=== PATIENT | male | born 1950 | race Caucasian/White ===

== ENCOUNTER → 2016-05-11 | Outpatient (REF) | payer BC, OTHER ==
[2016-05-11 16:01] LABS: ALBUMIN/GLOBULIN RATIO 1.38 (1.00-1.93); ALKALINE PHOSPHATASE 84 U/L (45-117); ALT/SGPT 36 U/L (12-78); ANION GAP 5 MEQ/L (8-16); AST/SGOT 28 U/L (15-37); BILIRUBIN,TOTAL 0.5 MG/DL (0.2-1.0); BLOOD UREA NITROGEN 17 MG/DL (7-18); CALCIUM LEVEL 8.4 MG/DL (8.8-10.2); CARBON DIOXIDE LEVEL 31 MEQ/L (21-32); CHLORIDE LEVEL 106 MEQ/L (98-107); CHOLESTEROL LEVEL 208 MG/DL (<200); CREATININE FOR GFR 1.04 MG/DL (0.70-1.30); GLOMERULAR FILTRATION RATE > 60.0 (>49); GLUCOSE, FASTING 97 MG/DL (80-110); SODIUM LEVEL 142 MEQ/L (136-145); TOTAL PROTEIN 6.9 GM/DL (6.4-8.2); TRIGLYCERIDES LEVEL 171 MG/DL (<150)
[2016-05-11 16:07] LABS: VITAMIN B12 LEVEL 631 PG/ML (247-911)
== END ==
LOC: M LABDRAW1 15:21
PROVIDERS: ATTEND Family Medicine
DX: I10 Essential (primary) hypertension (principal); E78.5 Hyperlipidemia, unspecified; Z12.5 Encounter for screening for malignant neoplasm of prostate; E53.8 Deficiency of other specified B group vitamins
CPT/HCPCS: 36415; 80053; 80061; 82607; G0103

== ENCOUNTER → 2016-06-21 | Outpatient (REF) | payer OTHER | LOC: M SFHCADAM 11:47 | PROVIDERS: ATTEND Family Medicine | DX: Z53.8 Procedure and treatment not carried out for other reasons (principal); I11.9 Hypertensive heart disease without heart failure ==

== ENCOUNTER → 2016-11-08 | Outpatient (REF) | payer MEDICARE, OTHER | LOC: M LABDRAW1 15:47 | PROVIDERS: ATTEND Family Medicine | DX: R97.20 Elevated prostate specific antigen [PSA] (principal) ==

== ENCOUNTER → 2016-11-18 | Outpatient (REF) | payer MEDICARE, BC, OTHER ==
[2016-11-18 17:35] LABS: ALBUMIN 4.1 GM/DL (3.2-5.2); ALBUMIN/GLOBULIN RATIO 1.37 (1.00-1.93); ALKALINE PHOSPHATASE 69 U/L (45-117); ALT/SGPT 123 U/L (12-78); ANION GAP 4 MEQ/L (8-16); AST/SGOT 104 U/L (15-37); BILIRUBIN,TOTAL 0.8 MG/DL (0.2-1.0); BLOOD UREA NITROGEN 16 MG/DL (7-18); CALCIUM LEVEL 8.9 MG/DL (8.8-10.2); CARBON DIOXIDE LEVEL 32 MEQ/L (21-32); CHLORIDE LEVEL 103 MEQ/L (98-107); CREATININE FOR GFR 1.14 MG/DL (0.70-1.30); FREE T4 0.84 NG/DL (0.76-1.46); GLOMERULAR FILTRATION RATE > 60.0 (>49); GLUCOSE, FASTING 97 MG/DL (80-110); POTASSIUM SERUM 4.2 MEQ/L (3.5-5.1); SODIUM LEVEL 139 MEQ/L (136-145); TOTAL PROTEIN 7.1 GM/DL (6.4-8.2)
[2016-11-18 17:36] LABS: VITAMIN B12 LEVEL 1153 PG/ML (247-911)
[2016-11-18 17:39] LABS: MEAN CORPUSCULAR HEMOGLOBIN 36.6 pg (27.0-33.0); MEAN CORPUSCULAR HGB CONC 35.7 g/dl (32.0-36.5); MEAN CORPUSCULAR VOLUME 102.6 fl (80.0-96.0); RED CELL DISTRIBUTION WIDTH 11.9 % (11.5-14.5)
== END ==
LOC: M SFHCPLAZ 10:51
PROVIDERS: ATTEND Family Medicine
DX: R06.09 Other forms of dyspnea (principal); E53.8 Deficiency of other specified B group vitamins

== ENCOUNTER → 2016-11-25 | Outpatient (CLI) | payer MEDICARE, BC, OTHER ==
--- NOTE | 2016-11-25 11:12 | REP ---
Clinical: Dyspnea . Comparison: 04/16/2009 . Technique: PA and lateral. Findings: The mediastinum and cardiac silhouette are normal. The lung adams are clear and without acute consolidation, effusion, or pneumothorax. The skeletal structures are intact and normal. Impression: 1. No acute cardiopulmonary process. Signed by Darío Rojo MD 11/25/2016 11:03 A
--- NOTE | 2016-11-25 18:13 | ECHO ---
DATE OF PROCEDURE: 11/25/2016 REFERRING PHYSICIAN: Luis Felipe Quigley MD INDICATION: Dyspnea. HEIGHT: 71 inches WEIGHT: 227 pounds PATIENT LOCATION: Outpatient. DIMENSIONS: IVS: 1.5 LV: 4.7 LVPW: 1.3 LA: 4.9 Aorta: 3.7 FINDINGS: The study is of fair technical quality. Left ventricle is of normal size. Moderate left ventricular hypertrophy is noted. There appears to be wall motion abnormality involving distal septum and apex that appear hypokinetic, but the visualization was rather limited and I am not certain about these findings. Overall left ventricle ejection fraction is preserved and I estimate LV EF around 60-65%. Right ventricle is normal. Left atrium is moderately enlarged. Right atrium is probably normal. There is no pericardial effusion. Aortic valve appears mildly sclerotic, but it has three cusps and normal mobility. Mitral, tricuspid and pulmonic valves appear normal. Inferior vena cava was not seen. Aortic root is normal. Aortic arch and abdominal aorta were not visualized. Doppler interrogation of aortic valve reveals no significant stenosis or insufficiency. There is mild mitral insufficiency and mild tricuspid insufficiency. Unfortunately, quality of TR jet was not sufficient to adequately estimate pulmonary artery pressure. There is mild pulmonic insufficiency. Mitral inflow pattern and tissue Doppler imaging of mitral annulus reveal grade 2 diastolic dysfunction with pseudo normal filling pattern on mitral inflow. CONCLUSIONS: 1. The study is of fair technical quality. 2. Normal left ventricle (LV) size with moderate left ventricular hypertrophy and overall preserved LV systolic function. Suspicion for wall motion abnormality involving distal septum and apex. 3. No significant valvular disease. 4. Unable to estimate central venous pressure and pulmonary artery pressure. COMMENT: Subacute bacterial endocarditis (SBE) prophylaxis is not recommended. Study raises suspicion for ischemic heart disease. There is evidence for hypertensive heart disease. [facility]
== END ==
LOC: M CARPUL 09:30
PROVIDERS: ATTEND Family Medicine
DX: R06.09 Other forms of dyspnea (principal); I10 Essential (primary) hypertension; R93.1 Abnormal findings on diagnostic imaging of heart and coronary circulation

== ENCOUNTER → 2016-12-21 | Outpatient (REF) | payer MEDICARE, BC, OTHER ==
[2016-12-21 20:58] LABS: ALBUMIN/GLOBULIN RATIO 1.14 (1.00-1.93); ALKALINE PHOSPHATASE 85 U/L (45-117); ALT/SGPT 134 U/L (12-78); AST/SGOT 90 U/L (15-37); BILIRUBIN,DIRECT 0.3 MG/DL (0.0-0.2); BILIRUBIN,TOTAL 0.7 MG/DL (0.2-1.0); FERRITIN 428 NG/ML (26-388); TOTAL PROTEIN 7.5 GM/DL (6.4-8.2)
[2016-12-23 11:05] LABS: HEPATITIS B SURFACE ANTIBODY NEGATIVE (POSITIVE)
[2016-12-23 11:31] LABS: HEP C VIRUS AB SCREEN MEDICARE 0.1 INDEX (<0.8)
[2016-12-24 00:07] LABS: ALPHA 1 ANTITRYPSIN 151 mg/dL (90-200)
== END ==
LOC: M SFHCADAM 15:37
PROVIDERS: ATTEND Family Medicine
DX: Z00.00 Encounter for general adult medical examination without abnormal findings (principal); R79.89 Other specified abnormal findings of blood chemistry; R93.1 Abnormal findings on diagnostic imaging of heart and coronary circulation; R06.9 Unspecified abnormalities of breathing; D53.9 Nutritional anemia, unspecified; Z23 Encounter for immunization
CPT/HCPCS: 80076; 82103; 82728; 86038; 86255; 86705; 86706; 86709; 87340; 90471; 90662; 90670; G0008; G0402; G0472

== ENCOUNTER → 2016-12-26 | Outpatient (CLI) | payer MEDICARE, BC, OTHER ==
--- NOTE | 2016-12-26 10:33 | REP ---
LIVER ULTRASOUND: HISTORY: Abnormal liver function tests. Calcifications are present in the gallbladder consistent with cholelithiasis. The gallbladder wall measures 2.1 mm. The common bile duct measures 4.3 mm. The liver is normal in echogenicity. The pancreas is not seen due to overlying bowel gas. The right kidney measures 6.1 cm in transverse by 4.8 cm in AP by 10.5 cm in cephalocaudal dimensions. There is no hydronephrosis or mass. IMPRESSION: Cholelithiasis. Signed by Jules Bajwa MD 12/26/2016 10:45 A
== END ==
LOC: M RAD 07:39
PROVIDERS: ATTEND Family Medicine
DX: K80.20 Calculus of gallbladder without cholecystitis without obstruction (principal)

== ENCOUNTER → 2017-01-20 | Outpatient (REF) | payer MEDICARE, OTHER ==
[2017-01-20 13:49] LABS: ANION GAP 9 MEQ/L (8-16); BLOOD UREA NITROGEN 14 MG/DL (7-18); CALCIUM LEVEL 9.2 MG/DL (8.8-10.2); CARBON DIOXIDE LEVEL 32 MEQ/L (21-32); CHLORIDE LEVEL 96 MEQ/L (98-107); CREATININE FOR GFR 1.08 MG/DL (0.70-1.30); GLOMERULAR FILTRATION RATE > 60.0 (>49); GLUCOSE, FASTING 136 MG/DL (80-110); SODIUM LEVEL 137 MEQ/L (136-145)
== END ==
LOC: M SFHCADAM 09:10
PROVIDERS: ATTEND Family Medicine
DX: R06.09 Other forms of dyspnea (principal); I10 Essential (primary) hypertension

== ENCOUNTER → 2017-01-24 | Outpatient (CLI) | payer MEDICARE, BC, OTHER ==
[~2017-01-24] MED LIST: ISOVUE-370 76% 100ML VIAL (Q9967) As Ordered ONE
--- NOTE | 2017-01-24 19:00 | REP ---
Clinical: Dyspnea on exertion. Technique: Axial contrast enhanced images from the thoracic inlet to the upper abdomen using 100 ml Isovue 370 intravenous contrast material with multiplanar re-formations. Findings: Satisfactory enhancement of the pulmonary vasculature is achieved and no filling defects are identified to suggest pulmonary embolus. Further evaluation of the mediastinum demonstrates normal thoracic aorta, heart and pericardium. The bilateral lung adams are well aerated and clear without consolidation pleural effusion or pneumothorax. Tracheobronchial tree is patent. No nodule or mass lesion is identified. No adenopathy noted. Surrounding musculoskeletal structures intact. Moderate hiatal hernia identified. Limited evaluation of the upper abdomen demonstrates fatty infiltration to the liver and evidence for cholelithiasis. Normal bilateral adrenal glands noted. Impression: 1. No evidence for pulmonary embolus. 2. No acute mediastinal or pleural parenchymal process. 3. Cholelithiasis. 4. Moderate hiatal hernia. 5. Hepatosteatosis. Signed by Darío Rojo MD 01/24/2017 06:52 P
== END ==
LOC: M RAD 18:06
PROVIDERS: ATTEND Family Medicine
DX: R06.09 Other forms of dyspnea (principal)
CPT/HCPCS: 71275; Q9967

== ENCOUNTER → 2017-02-15 | Outpatient (REF) | payer MEDICARE, OTHER ==
[2017-02-15 13:22] LABS: REASON FOR REVIEW COMPREHENSIVE REVIEW
[2017-02-15 13:28] LABS: INR 0.92
[2017-02-15 13:33] LABS: BILIRUBIN,DIRECT 0.3 MG/DL (0.0-0.2)
== END ==
LOC: M LAB REF 12:49
PROVIDERS: ATTEND Internal Medicine Medical Oncology
DX: E83.119 Hemochromatosis, unspecified (principal)

== ENCOUNTER → 2017-03-01 | Outpatient (REF) | payer MEDICARE, OTHER ==
[2017-03-01 13:53] LABS: PERCENT SATURATION 54.1 % (19.7-50.0)
== END ==
LOC: M LAB REF 12:56
PROVIDERS: ATTEND Internal Medicine Medical Oncology
DX: R79.0 Abnormal level of blood mineral (principal)

== ENCOUNTER → 2017-05-10 | Outpatient (REF) | payer MEDICARE, OTHER ==
[2017-05-10 13:19] LABS: FREE T4 0.97 NG/DL (0.76-1.46)
== END ==
LOC: M LABDRAW1 12:43
DX: R53.83 Other fatigue (principal)
CPT/HCPCS: 84443

== ENCOUNTER → 2017-05-18 | Outpatient (REF) | payer MEDICARE, OTHER ==
[2017-05-18 14:32] LABS: FERRITIN 76 NG/ML (26-388); IRON (FE) 81 UG/DL (65-175); PERCENT SATURATION 18.5 % (19.7-50.0); TOTAL IRON BINDING CAPACITY 438 UG/DL (250-450)
== END ==
LOC: M LAB REF 13:02
DX: R79.89 Other specified abnormal findings of blood chemistry (principal)
CPT/HCPCS: 83550

== ENCOUNTER → 2017-06-02 | Outpatient (REF) | payer MEDICARE, OTHER ==
[2017-06-02 19:35] LABS: HEMATOCRIT 46.2 % (42.0-52.0); MEAN CORPUSCULAR HEMOGLOBIN 32.9 pg (27.0-33.0); MEAN CORPUSCULAR HGB CONC 34.6 g/dl (32.0-36.5); MEAN CORPUSCULAR VOLUME 94.9 fl (80.0-96.0); PLATELET COUNT, AUTOMATED 257 10^3/uL (150-450); RED BLOOD COUNT 4.87 10^6/uL (4.30-6.10); RED CELL DISTRIBUTION WIDTH 11.4 % (11.5-14.5); WHITE BLOOD COUNT 5.5 10^3/uL (4.0-10.0)
[2017-06-02 19:53] LABS: TOTAL 25(OH) VITAMIN D 15.9 NG/ML (30.0-100.0)
[2017-06-02 19:54] LABS: VITAMIN B12 LEVEL 1032 PG/ML (247-911)
[2017-06-02 20:00] LABS: ALBUMIN 4.3 GM/DL (3.2-5.2); ALBUMIN/GLOBULIN RATIO 1.26 (1.00-1.93); ALKALINE PHOSPHATASE 94 U/L (45-117); ALT/SGPT 175 U/L (12-78); ANION GAP 9 MEQ/L (8-16); AST/SGOT 162 U/L (7-37); BILIRUBIN,TOTAL 0.7 MG/DL (0.2-1.0); BLOOD UREA NITROGEN 15 MG/DL (7-18); CALCIUM LEVEL 9.1 MG/DL (8.8-10.2); CARBON DIOXIDE LEVEL 31 MEQ/L (21-32); CHLORIDE LEVEL 99 MEQ/L (98-107); CHOLESTEROL LEVEL 228 MG/DL (<200); CHOLESTEROL RISK RATIO 4.071 (<5); CREATININE FOR GFR 1.62 MG/DL (0.70-1.30); FREE T4 0.94 NG/DL (0.76-1.46); GLOMERULAR FILTRATION RATE 45.8 (>49); GLUCOSE, FASTING 108 MG/DL (70-100); HDL CHOLESTEROL 56 MG/DL (>40); NON-HDL-C 172 MG/DL; POTASSIUM SERUM 3.5 MEQ/L (3.5-5.1); PROSTATIC SPECIFIC AG MONITOR 3.27 NG/ML (< 4.0); SODIUM LEVEL 139 MEQ/L (136-145); TOTAL PROTEIN 7.7 GM/DL (6.4-8.2); TRIGLYCERIDES LEVEL 155 MG/DL (<150)
[2017-06-05 10:04] LABS: FOLATE > 24.0 NG/ML (>5.4)
== END ==
LOC: M SFHCADAM 14:40
DX: R97.20 Elevated prostate specific antigen [PSA] (principal); R53.83 Other fatigue; R94.2 Abnormal results of pulmonary function studies; I10 Essential (primary) hypertension; E78.5 Hyperlipidemia, unspecified; R26.89 Other abnormalities of gait and mobility; E53.8 Deficiency of other specified B group vitamins; I11.9 Hypertensive heart disease without heart failure; Z14.8 Genetic carrier of other disease; Z79.899 Other long term (current) drug therapy
CPT/HCPCS: 82746

== ENCOUNTER → 2017-06-08 | Outpatient (REF) | payer MEDICARE, OTHER ==
[2017-06-08 12:23] LABS: APPEARANCE, URINE MANUAL CLEAR (CLEAR); BILIRUBIN, URINE MANUAL NEGATIVE (NEGATIVE); BLOOD URINE MANUAL NEGATIVE (NEGATIVE); COLOR, URINE MANUAL YELLOW (YELLOW); GLUCOSE, URINE (UA) MANUAL NEGATIVE (NEGATIVE); KETONE, URINE MANUAL NEGATIVE (NEGATIVE); LEUKOCYTE ESTERASE, URINE MAN NEGATIVE (NEGATIVE); MICROSCOPIC INDICATED? MAN NO (NO); NITRITE, URINE MANUAL NEGATIVE (NEGATIVE); PROTEIN, URINE MANUAL NEGATIVE (NEGATIVE); SPECIFIC GRAVITY,URINE MANUAL 1.005 (1.002-1.035); UROBILINOGEN, URINE MANUAL NORMAL (NORMAL)
== END ==
LOC: M SFHCADAM 10:32
DX: N17.9 Acute kidney failure, unspecified (principal); I11.9 Hypertensive heart disease without heart failure; R53.83 Other fatigue; G47.33 Obstructive sleep apnea (adult) (pediatric); E83.10 Disorder of iron metabolism, unspecified; Z14.8 Genetic carrier of other disease
CPT/HCPCS: 81002

== ENCOUNTER → 2017-07-17 | Outpatient (CLI) | payer MEDICARE, BC, OTHER ==
[2017-07-17 11:34] LABS: ESTIMATED AVERAGE GLUCOSE 123 MG/DL (60-110); HEMOGLOBIN A1c 5.9 %
[2017-07-17 12:13] LABS: TOTAL PROTEIN 8.1 GM/DL (6.4-8.2)
[2017-07-17 12:13] LABS: CPK CREATINE PHOSPHOKINASE 228 U/L (39-308)
[2017-07-19 08:06] LABS: CERULOPLASMIN 18.3 mg/dL (16.0-31.0)
[2017-07-19 11:22] LABS: ALBUMIN 4.63 GM/DL (3.29-5.55); ALBUMIN % 57.1 % (55.8-66.1); ALPHA-1-GLOBULIN % 4.2 % (2.9-4.9); ALPHA-1-GLOBULINS 0.34 GM/DL (0.17-0.41); ALPHA-2-GLOBULINS 0.79 GM/DL (0.42-0.99); ALPHA-2-GLOBULINS % 9.7 % (7.1-11.8); BETA-1-GLOBULINS 0.64 GM/DL (0.28-0.60); BETA-1-GLOBULINS % 7.9 % (4.7-7.2); BETA-2-GLOBULINS 0.45 GM/DL (0.19-0.55); BETA-2-GLOBULINS % 5.5 % (3.2-6.5); GAMMA GLOBULIN % 15.6 % (11.1-18.8); GAMMA GLOBULINS 1.26 GM/DL (0.65-1.58)
[2017-07-20 00:07] LABS: LEAD BLOOD ADULT 1 ug/dL (0-19)
[2017-07-20 00:07] LABS: COPPER PLASMA 85 ug/dL (72-166); MERCURY LEVEL None Detected ug/L (0.0-14.9)
== END ==
LOC: M LAB 10:41
DX: R53.1 Weakness (principal); E11.9 Type 2 diabetes mellitus without complications; T56.4X2S Toxic effect of copper and its compounds, intentional self-harm, sequela; T56.0X2S Toxic effect of lead and its compounds, intentional self-harm, sequela; T56.1X2S Toxic effect of mercury and its compounds, intentional self-harm, sequela
CPT/HCPCS: 82525

== ENCOUNTER → 2018-05-16 | Outpatient (CLI) | payer MEDICARE, BC, OTHER ==
[2018-05-16 11:22] LABS: INR 0.98; PROTHROMBIN TIME 13.1 SECONDS (12.1-14.4)
[2018-05-16 11:24] LABS: PARTIAL THROMBOPLASTIN TIME 47.6 SECONDS (25.4-37.6)
[2018-05-16 12:00] LABS: ALBUMIN 3.9 GM/DL (3.2-5.2); ALT/SGPT 200 U/L (12-78); BILIRUBIN,DIRECT 0.5 MG/DL (0.0-0.2); BILIRUBIN,TOTAL 1.2 MG/DL (0.2-1.0); FERRITIN 235 NG/ML (26-388); HEPATITIS B SURFACE ANTIBODY NEGATIVE (POSITIVE); HEPATITIS B SURFACE ANTIGEN NEGATIVE (NEGATIVE); IRON (FE) 257 UG/DL (65-175); PERCENT SATURATION 58.3 % (19.7-50.0); TOTAL IRON BINDING CAPACITY 441 UG/DL (250-450); TOTAL PROTEIN 7.8 GM/DL (6.4-8.2)
[2018-05-16 12:14] LABS: HEPATITIS C VIRUS ABY INDEX < 0.0 INDEX (<0.8)
[2018-05-16 12:17] LABS: HEPATITIS A ANTIBODY IGM NEGATIVE (NEGATIVE)
[2018-05-17 13:33] LABS: ALBUMIN 4.38 GM/DL (3.29-5.55); ALBUMIN % 56.2 % (55.8-66.1); ALPHA-1-GLOBULIN % 3.9 % (2.9-4.9); ALPHA-2-GLOBULINS 0.79 GM/DL (0.42-0.99); ALPHA-2-GLOBULINS % 10.1 % (7.1-11.8); BETA-1-GLOBULINS 0.56 GM/DL (0.28-0.60); BETA-1-GLOBULINS % 7.2 % (4.7-7.2); BETA-2-GLOBULINS 0.47 GM/DL (0.19-0.55); GAMMA GLOBULIN % 16.6 % (11.1-18.8); GAMMA GLOBULINS 1.29 GM/DL (0.65-1.58)
[2018-05-18 00:07] LABS: ALPHA 1 ANTITRYPSIN 165 mg/dL (90-200); ANTI-MITOCHONDRIAL ANTIBODY <20.0 Units (0.0-20.0); ANTI-SMOOTH MUSCLE ANTIBODY 17 Units (0-19); ANTINUCLEAR ANTIBODIES DIRECT Negative (Negative); CERULOPLASMIN 23.7 mg/dL (16.0-31.0); HEPATITIS A IgG TOTAL Positive (Negative); LIVER-KIDNEY MICROSOMAL ABY <20.1 Units (0.0-20.0); TISSUE TRANSGLUTAMINASE IgG <2 U/mL (0-5)
== END ==
LOC: M LAB 09:55
PROVIDERS: ATTEND Internal Medicine Gastroenterology
DX: R94.5 Abnormal results of liver function studies (principal); E83.110 Hereditary hemochromatosis; E07.9 Disorder of thyroid, unspecified

== ENCOUNTER → 2018-06-21 | Outpatient (CLI) | payer MEDICARE, BC, OTHER ==
[~2018-06-21] MED LIST changes: +BUPR300T34 PO; +CARB25TA9 PO; +CHLO25TA PO; +CITA20TA6 PO; +FOLI1TAB11 PO; -ISOVUE-370 76% 100ML VIAL (Q9967) As Ordered ONE; +OMEP40CA2 PO; +VITA100018 PO; +VITA250T29 PO
[2018-06-21 13:13] LABS: ALBUMIN 3.9 GM/DL (3.2-5.2); ALT/SGPT 225 U/L (12-78); BILIRUBIN,TOTAL 1.4 MG/DL (0.2-1.0); BLOOD UREA NITROGEN 14 MG/DL (7-18); CALCIUM LEVEL 9.2 MG/DL (8.8-10.2); CARBON DIOXIDE LEVEL 31 MEQ/L (21-32); CHLORIDE LEVEL 100 MEQ/L (98-107); CREATININE FOR GFR 0.97 MG/DL (0.70-1.30); GLOMERULAR FILTRATION RATE > 60.0 (>49); GLUCOSE, FASTING 107 MG/DL (70-100); SODIUM LEVEL 139 MEQ/L (136-145); TOTAL PROTEIN 8.2 GM/DL (6.4-8.2)
[2018-06-21 13:16] LABS: HEMATOCRIT 46.6 % (42.0-52.0); HEMOGLOBIN 17.1 g/dl (13.5-17.5); MEAN CORPUSCULAR HEMOGLOBIN 35.6 pg (27.0-33.0); MEAN CORPUSCULAR VOLUME 96.9 fl (80.0-96.0); PLATELET COUNT, AUTOMATED 213 10^3/uL (150-450); RED BLOOD COUNT 4.81 10^6/uL (4.30-6.10); WHITE BLOOD COUNT 5.3 10^3/uL (4.0-10.0)
[2018-06-21 13:18] LABS: MEAN CORPUSCULAR HGB CONC 36.7 g/dl (32.0-36.5)
== END ==
LOC: M LAB 11:56
PROVIDERS: ATTEND Internal Medicine
DX: Z01.810 Encounter for preprocedural cardiovascular examination (principal)

== ENCOUNTER 2018-06-22 05:44 | Inpatient (IN) | payer MEDICARE, BC, OTHER ==
[~2018-06-22] VITALS: Ht 180.3 cm; Wt 106.1 kg
[2018-06-22] VITALS (8 sets, daily range): BP systolic 137–161; BP diastolic 73–94; O2SAT 94
[2018-06-22] MEDS ORDERED: LIDOCAINE 1% SDV INJ 30 ML VIAL As Ordered ONE (07:05)
[2018-06-22] MEDS ORDERED: HEPARIN SOD (PORCINE) 5000 UNITS/ML VIAL As Ordered ONE ×4 (07:07→10:33)
[2018-06-22] MEDS ORDERED: ISOVUE-300 61% 50ML VIAL (Q9967) As Ordered ONE (07:07)
[2018-06-22] MEDS ORDERED: GLYCOPYRROLATE INJ 0.2 MG/ML 2 ML VIAL As Ordered ONE (07:08)
[2018-06-22] MEDS ORDERED: BUPIVACAINE HCL 0.5% 30 ML VIAL As Ordered ONE (07:08)
[2018-06-22] MEDS ORDERED: PHENYLEPHRINE INJ 10MG/ML VIAL (J2370) As Ordered ONE (07:08)
[2018-06-22] MEDS ORDERED: NEOSTIGMINE 10 MG/10 ML VIAL (J2710) As Ordered ONE (07:08)
[2018-06-22] MEDS ORDERED: ROCURONIUM BROMIDE 50 MG/5 ML VIAL As Ordered ONE ×3 (07:08→10:16)
[2018-06-22] MEDS ORDERED: MIDAZOLAM INJ 2 MG/2 ML VIAL (J2250) As Ordered ONE (07:08)
[2018-06-22] MEDS ORDERED: ONDANSETRON 4MG/2ML VIAL (J2405) As Ordered ONE (07:08)
[2018-06-22] MEDS ORDERED: LIDOCAINE 2% INJ 100 MG/5 ML SDV (FOR ANES.) As Ordered ONE (07:08)
[2018-06-22] MEDS ORDERED: PROPOFOL 200 MG/20 ML VIAL As Ordered ONE (07:08)
[2018-06-22] MEDS ORDERED: dexameTHASONE 4 MG/ML 1ML VIAL (J1100) As Ordered ONE (07:08)
[2018-06-22] MEDS ORDERED: fentaNYL 100 MCG/2 ML INJECTION (J3010) As Ordered ONE ×2 (07:09→09:45)
[2018-06-22] MEDS ORDERED: LIDOCAINE 1% MDV 20ML VIAL SQ PRN (07:30)
[2018-06-22] MEDS ORDERED: LR 1,000 ML IV SCH ×2 (07:30→12:00)
--- NOTE | 2018-06-22 07:32 | HPEPDOC ---
General Date of Admission Jun 22, 2018 at 05:44 Primary Care Physician: A Attending Physician: Vijay Landeros MD Chief Complaint The patient is a 67-year-old male admitted with a reason for visit of Abdominal Aortic Aneurysm. History of Present Illness Patient is a 67-year-old male who was found to have a an abdominal aortic aneurysm and a left common iliac artery aneurysm. Patient also complains of bilateral lower extremity leg pain. Home Medications Scheduled Bupropion HCl (Bupropion Xl) 300 Mg Tab, 300 MG PO DAILY, (Reported) Carbidopa/Levodopa (Carbidopa-Levodopa 25-100 Tab) 1 Tab Tab, 1 TAB PO QHSP, (Reported) Chlorthalidone (Chlorthalidone) 25 Mg Tab, 25 MG PO DAILY, (Reported) Citalopram Hydrobromide (Citalopram HBr) 20 Mg Tab, 20 MG PO DAILY, (Reported) Cyanocobalamin (Vitamin B-12) (Vitamin B-12) 1,000 Mcg Tab, 1,000 MCG PO DAILY, (Reported) Folic Acid (Folic Acid) 1 Mg Tab, 1 MG PO DAILY, (Reported) Omeprazole (Omeprazole) 40 Mg Cap, 40 MG PO DAILY, (Reported) Thiamine HCl (Vitamin B-1) 250 Mg Tab, 250 MG PO DAILY, (Reported) Allergies Coded Allergies: lisinopril (Unverified Adverse Reaction, Intermediate, made feel funny, 06/13/18) amlodipine (Unverified Adverse Reaction, Unknown, made feel funny, 06/13/18) Past Medical History Medical History Gastroesophageal reflux Hypertension Family History Significant Family History: Cancer, Heart disease Father has a history of lymphoma Mother has a history of coronary artery disease Social History * Smoker: Denies Alcohol: Denies Recent Travel/Sick Contacts: Denies: Recent travel, Recent sick contacts Psychosocial History: No pertinent psych hx Review of Systems Constitutional: Denies: Chills, Fever, Malaise, Night Sweats, Weakness, Fatigue, Weight Loss, Lethargy Eyes: Reports: Other; Denies: Pain, Vision change, Conjunctivae inflammation, Eyelid inflammation, Redness ENT: Denies: Head Aches, Ear Pain, Dysphagia, Sinus Congestion, Post Nasal Drip, Sore Throat, Epistaxis Skin: Denies: Rash, Lesions, Jaundice, Bruising, Itching, Dry, Breakdown, Nail Changes Pulmonary: Denies: Dyspnea, Cough, Pleuritic Chest Pain Cardiovascular: Denies: Chest Pain, Palpitations, Orthopnea, Paroxysmal Noc. Dyspnea, Edema, Lt Headedness Gastrointestinal: Denies: Nausea, Vomiting, Abdominal Pain, Diarrhea, Constipation, Melena, Hematochezia Genitourinary: Denies: Dysuria, Frequency, Incontinence, Hematuria, Retention Hematologic: Denies: Bruising, Bleeding Excessively, Petecchia, Purpura, Enlarged Lymph Nodes Endocrine: Denies: Polydipsia, Polyphagia, Polyuria, Heat Intolerance, Cold Intolerance Musculoskeletal: Denies: Neck Pain, Back Pain, Shoulder Pain, Arm Pain, Hand Pain, Leg Pain, Foot Pain, Joint Pain, Muscle Pain, Spasms Neurological: Denies: Weakness, Numbness, Incoordination, Change in speech, Confusion, Seizures Psych: Reports: Mood Normal, Other Psych; Denies: Anxiety, Depression, Memory Issues, Thoughts of Self Harm, Anger, Thoughts of Harming Other Physical Examination General Exam: Positive: Alert, Cooperative, No Acute Distress Eye Exam: Positive: PERRLA ENT Exam: Positive: Atraumatic, Mucous membr. moist/pink, Pharynx Normal, Tongue Midline Neck Exam: Positive: Supple, +2 carotid pulse wo bruit Chest Exam: Positive: Clear to auscultation Heart Exam: Positive: Rate Normal Abdomen Exam: Positive: Normal bowel sounds, Soft Extremity Exam: Positive: Normal pulses; Negative: Clubbing, Cyanosis, Edema, Tenderness, Swelling Skin Exam: Positive: Nl turgor and temperature Neuro Exam: Positive: Normal Gait, Normal Speech, Strength at 5/5 X4 ext, Normal Tone, Sensation Intact, Cranial Nerves 3-12 NL, Reflexes 2+ Psych Exam: Positive: Mental status NL, Mood NL, Memory Intact, Oriented x 3 Vital Signs Vital Signs Date Time Temp Pulse Resp B/P (MAP) Pulse Ox O2 Delivery O2 Flow Rate FiO2 06/22/18 06:45 97.0 80 18 148/98 (115) 97 Laboratory Data CBC/BMP Assessment/Plan Assessment 67-year-old male with aortic aneurysm and left common iliac artery aneurysm who is a good candidate for an endovascular abdominal aortic aneurysm repair. Plan Patient will undergo endovascular abdominal aortic aneurysm repair with possible open Vijay Landeros MD Jun 22, 2018 07:32
[2018-06-22] MEDS: KCL 10MEQ/100ML SWI (KRUN) 100 ML IV SCH ×6 (07:45→14:28)
[2018-06-22] MEDS: CHLORTHALIDONE 25 MG TAB PO SCH (09:00)
[2018-06-22] MEDS ORDERED: ceFAZolin 2 GM/D5W 50 ML IV BAG (J0690 PER 500MG) As Ordered ONE (09:18)
[2018-06-22] MEDS ORDERED: PROTAMINE SULF INJ 50 MG/5 ML VIAL (J2720) As Ordered ONE (11:02)
[2018-06-22] MEDS ORDERED: SUGAMMADEX SODIUM 500 MG/5 ML VIAL (BRIDION) As Ordered ONE (11:07)
[2018-06-22] MEDS ORDERED: BISACODYL 10 MG SUPP PR PRN (11:45)
[2018-06-22] MEDS ORDERED: MOM 30ML SUSPENSION UDC PO PRN (11:45)
[2018-06-22] MEDS ORDERED: ONDANSETRON 4MG/2ML VIAL (J2405) IV PRN (12:00)
[2018-06-22] MEDS ORDERED: fentaNYL 100 MCG/2 ML INJECTION (J3010) IV PRN (12:00)
[2018-06-22] MEDS ORDERED: HYDROMORPHONE HCL 0.5 MG/ 0.5 ML SYRINGE (J1170 PER 1) IV PRN (12:00)
[2018-06-22] MEDS ORDERED: PERCOCET 5MG/325MG TAB PO PRN (12:00)
[2018-06-22] MEDS: CYANOCOBALAMIN 500 MCG TAB PO SCH (15:25)
[2018-06-22] MEDS: FOLIC ACID 1 MG TAB PO SCH (15:26)
[2018-06-22] MEDS: THIAMINE 100 MG TAB PO SCH (15:27)
[2018-06-22] MEDS: NORCO, ANEXSIA 5/325MG TABLET (HYDROcodone/ACETAMINOPHEN) PO PRN (19:49)
[2018-06-22] MEDS: SENOKOT S TAB PO SCH (20:26)
[2018-06-22] MEDS: DOCUSATE SODIUM 100 MG CAP PO SCH (20:26)
[2018-06-22] MEDS ORDERED: SINEMET 25-100 MG TAB PO SCH (21:00)
[2018-06-23 02:00] VITALS: BP 144/88
[2018-06-23] MEDS: NORCO, ANEXSIA 5/325MG TABLET (HYDROcodone/ACETAMINOPHEN) PO PRN (02:40)
[2018-06-23 06:00] VITALS: BP 130/77
[2018-06-23 06:45] LABS: BASO % 0.1 % (0.0-1.0); HEMATOCRIT 39.2 % (42.0-52.0); LYMPH % 10.1 % (24.0-44.0); MEAN CORPUSCULAR HEMOGLOBIN 35.7 pg (27.0-33.0); MEAN CORPUSCULAR HGB CONC 36.2 g/dl (32.0-36.5); MEAN CORPUSCULAR VOLUME 98.5 fl (80.0-96.0); MONO # 0.9 10^3/uL (0.0-0.8); MONO % 9.5 % (0.0-5.0); NEUTROPHILS # 7.7 10^3/uL (1.8-7.7); NEUTROPHILS % 79.6 % (36.0-66.0); PLATELET COUNT, AUTOMATED 174 10^3/uL (150-450); RED BLOOD COUNT 3.98 10^6/uL (4.30-6.10); WHITE BLOOD COUNT 9.7 10^3/uL (4.0-10.0)
[2018-06-23 06:46] LABS: HEMOGLOBIN 14.2 g/dl (13.5-17.5)
[2018-06-23 07:13] LABS: BLOOD UREA NITROGEN 14 MG/DL (7-18); CALCIUM LEVEL 8.8 MG/DL (8.8-10.2); CARBON DIOXIDE LEVEL 31 MEQ/L (21-32); CHLORIDE LEVEL 97 MEQ/L (98-107); CREATININE FOR GFR 1.04 MG/DL (0.70-1.30); GLOMERULAR FILTRATION RATE > 60.0 (>49); GLUCOSE, FASTING 147 MG/DL (70-100); POTASSIUM SERUM 2.9 MEQ/L (3.5-5.1); SODIUM LEVEL 138 MEQ/L (136-145)
[2018-06-23] MEDS ORDERED: POTASSIUM CHLORIDE 10 MEQ SR TABLET PO ONE ×2 (08:00→11:00)
[2018-06-23] MEDS: SENOKOT S TAB PO SCH (08:24)
[2018-06-23] MEDS: FOLIC ACID 1 MG TAB PO SCH (08:24)
[2018-06-23] MEDS: DOCUSATE SODIUM 100 MG CAP PO SCH (08:24)
[2018-06-23] MEDS: THIAMINE 100 MG TAB PO SCH (08:24)
[2018-06-23] MEDS: CYANOCOBALAMIN 500 MCG TAB PO SCH (08:24)
[2018-06-23] MEDS: CHLORTHALIDONE 25 MG TAB PO SCH (08:25)
--- NOTE | 2018-06-23 08:48 | DS.PDOC ---
Discharge Summary General Date of Admission Jun 22, 2018 at 05:44 Discharge Summary PROCEDURES PERFORMED DURING STAY: [None]. ADMITTING DIAGNOSES: 1. . DISCHARGE DIAGNOSES: 1. . COMPLICATIONS/CHIEF COMPLAINT: Abdominal Aortic Aneurysm. HISTORY OF PRESENT ILLNESS: . HOSPITAL COURSE: . DISCHARGE MEDICATIONS: Please see below. ALLERGIES: Please see below. PHYSICAL EXAMINATION ON DISCHARGE: VITAL SIGNS: Please see below. GENERAL: HEENT: NECK: CARDIOVASCULAR EXAMINATION: RESPIRATORY EXAMINATION: ABDOMINAL EXAMINATION: EXTREMITIES: SKIN: NEUROLOGICAL EXAMINATION: PSYCHIATRIC EXAMINATION: LABORATORY DATA: Please see below. IMAGING: PROGNOSIS: ACTIVITY: [As tolerated]. DIET: DISCHARGE PLAN: DISPOSITION: . DISCHARGE INSTRUCTIONS: 1. . ITEMS TO FOLLOWUP ON ON OUTPATIENT: 1. . DISCHARGE CONDITION: [Stable]. TIME SPENT ON DISCHARGE: Greater than minutes. Vital Signs/I&Os Vital Signs Date Time Temp Pulse Resp B/P (MAP) Pulse Ox O2 Delivery O2 Flow Rate FiO2 06/23/18 06:00 97.4 67 15 130/77 (94) 95 06/22/18 22:00 2.0 06/22/18 22:00 Nasal Cannula I&O- Last 24 Hours up to 6 AM 06/23/18 06:00 Intake Total 3185 ml Output Total 600 ml Balance 2585 ml Laboratory Data Labs 24H Laboratory Tests 2 06/23/18 06:15: Immature Granulocyte % (Auto) 0.7, White Blood Count 9.7, Red Blood Count 3.98L, Hemoglobin 14.2#, Hematocrit 39.2L, Mean Corpuscular Volume 98.5H, Mean Corpuscular Hemoglobin 35.7H, Mean Corpuscular Hemoglobin Concent 36.2, Red Cell Distribution Width 11.9, Platelet Count 174, Neutrophils (%) (Auto) 79.6H, Lymphocytes (%) (Auto) 10.1L, Monocytes (%) (Auto) 9.5H, Eosinophils (%) (Auto) 0.0, Basophils (%) (Auto) 0.1, Neutrophils # (Auto) 7.7, Lymphocytes # (Auto) 1.0L, Monocytes # (Auto) 0.9H, Eosinophils # (Auto) 0.0, Basophils # (Auto) 0.0, Nucleated Red Blood Cells % (auto) 0.0, Anion Gap 10, Glomerular Filtration Rate > 60.0, Blood Urea Nitrogen 14, Creatinine 1.04, Sodium Level 138, Potassium Level 2.9*L, Chloride Level 97L, Carbon Dioxide Level 31, Calcium Level 8.8 CBC/BMP Laboratory Tests 06/22/18 11:50 06/23/18 06:15 Red Blood Count 3.98 L, Mean Corpuscular Volume 98.5 H, Mean Corpuscular Hemoglobin 35.7 H, Mean Corpuscular Hemoglobin Concent 36.2, Red Cell Distribution Width 11.9, Neutrophils (%) (Auto) 79.6 H, Lymphocytes (%) (Auto) 10.1 L, Monocytes (%) (Auto) 9.5 H, Eosinophils (%) (Auto) 0.0, Basophils (%) (Auto) 0.1, Neutrophils # (Auto) 7.7, Lymphocytes # (Auto) 1.0 L, Monocytes # (Auto) 0.9 H, Eosinophils # (Auto) 0.0, Basophils # (Auto) 0.0, Calcium Level 8 .8 Discharge Medications Scheduled Bupropion HCl (Bupropion Xl) 300 Mg Tab, 300 MG PO DAILY, (Reported) Carbidopa/Levodopa (Carbidopa-Levodopa 25-100 Tab) 1 Tab Tab, 1 TAB PO QHSP, (Reported) Chlorthalidone (Chlorthalidone) 25 Mg Tab, 25 MG PO DAILY, (Reported) Citalopram Hydrobromide (Citalopram HBr) 20 Mg Tab, 20 MG PO DAILY, (Reported) Cyanocobalamin (Vitamin B-12) (Vitamin B-12) 1,000 Mcg Tab, 1,000 MCG PO DAILY, (Reported) Folic Acid (Folic Acid) 1 Mg Tab, 1 MG PO DAILY, (Reported) Omeprazole (Omeprazole) 40 Mg Cap, 40 MG PO DAILY, (Reported) Thiamine HCl (Vitamin B-1) 250 Mg Tab, 250 MG PO DAILY, (Reported) Allergies Coded Allergies: lisinopril (Unverified Adverse Reaction, Intermediate, made feel funny, 06/13/18) amlodipine (Unverified Adverse Reaction, Unknown, made feel funny, 06/13/18) Vijay Landeros MD Jun 23, 2018 08:48
--- NOTE | 2018-06-23 08:48 | ROOPDOC ---
[facility] Report Of Operation Report of Operation DATE OF PROCEDURE: 06/23/18 PREPROCEDURE DIAGNOSES: . POSTPROCEDURE DIAGNOSES: . PROCEDURE: . SURGEON: , ASSISTANT PROFESSOR OF SURGERY: , ANESTHESIA: . ESTIMATED BLOOD LOSS: Approximately mL. COMPLICATIONS: . REMARKS: . PROCEDURE NOTE: . DESCRIPTION OF PROCEDURE: . Vijay Landeros MD Jun 23, 2018 08:48
[2018-06-23] MEDS ORDERED: OMEPRAZOLE 20 MG CAP PO SCH (09:00)
[2018-06-23] MEDS ORDERED: CitaloPRAM (CeleXA) 20 MG TAB PO SCH (09:00)
[2018-06-23] MEDS ORDERED: buPROPion **XL** TABLET 150MG (WELLBUTRIN XL) PO SCH (09:00)
--- NOTE | 2018-07-18 09:00 | DSES ---
DATE OF ADMISSION: 06/22/2018 DATE OF DISCHARGE: 06/23/2018 ADMISSION DIAGNOSIS: Abdominal aortic aneurysm. DISCHARGE DIAGNOSIS: Abdominal aortic aneurysm. PROCEDURES PERFORMED DURING HOSPITALIZATION: Endovascular abdominal aortic aneurysm repair percutaneously. HOSPITAL COURSE: The patient was admitted and underwent a percutaneous endovascular abdominal aortic aneurysm repair and did well postoperative day #1 and was subsequently discharged home. The patient will followup the office in 7-10 days.
--- NOTE | 2018-07-18 09:11 | RO ---
DATE OF PROCEDURE: 06/22/2018 ATTENDING SURGEON: Dr. Christiano Landeros DIRECTOR OF MANUFACTURING: None. PREOPERATIVE DIAGNOSIS: Abdominal aortic aneurysm. POSTOPERATIVE DIAGNOSIS: Abdominal aortic aneurysm. PROCEDURE: Endovascular abdominal aortic aneurysm repair percutaneously. INDICATION: The patient is a 67-year-old male who underwent evaluation and was found to have an abdominal aortic aneurysm which was amenable to endovascular repair. Risks, benefits, and alternative treatment options were discussed with the patient. ANESTHESIA: General endotracheal. ESTIMATED BLOOD LOSS: 100 mL. IV FLUIDS: 1700 mL. HEPARIN: 7000 units followed by an additional 3000 unit bolus, protamine 50 mg. URINE OUTPUT: 200 mL via Martínez. FLUORO TIME: 16 minutes, 18 seconds. CONTRAST: 26 mL of ISOVUE 300. COMPLICATIONS: None. DRAINS: None. SPECIMENS: None. PROCEDURE: The patient was taken to the operating room, placed supine on the operating room table and then prepped and draped in a standard surgical fashion. The femoral arteries were cannulated bilaterally using a micropuncture needle, 6-Swedish sheaths were placed after which two Perclose devices were placed in each femoral artery bilaterally. The endovascular graft was then placed under fluoroscopic guidance and serial aortograms performed using a 28 x 14 x 103 bifurcated endograft via a left femoral approach. The right iliac limb was extended with a 16 x 20 x 93 Endurant II flared iliac limb. The left iliac limb was extended with a 16 x 28 x 124 flared Endurant II iliac limb. The graft in both limbs were angioplastied with a [employer] Compliant balloon, after which a completion angiogram was performed showing no Type 1 endoleak. There was good filling of the renal arteries, as well as the distal external and internal iliac arteries. The sheaths were removed and the Perclose devices were deployed closing the arteriotomy. Dressings were then applied. The patient tolerated procedure well. All instrument, sponge, and needle counts were correct at the end of the case. There were no complications. Dr. Landeros was present for and directed the entire case. The patient was transferred to the recovery room awake, alert, extubated and in stable condition.
== END 2018-06-23 10:56 | disposition home or self-care (01) | DRG 269 ==
LOC: M OR 05:44 → M MSPAV 13:33
PROVIDERS: ADMIT Surgery Vascular Surgery; ATTEND Surgery Vascular Surgery
PROC: 04V03DZ Restriction of Abdominal Aorta with Intraluminal Device, Percutaneous Approach (ICD-10-PCS; principal; 2018-06-22 07:30)
DX: I71.4 Abdominal aortic aneurysm, without rupture (principal); K21.9 Gastro-esophageal reflux disease without esophagitis; I10 Essential (primary) hypertension; I72.3 Aneurysm of iliac artery; Z79.899 Other long term (current) drug therapy; Z88.8 Allergy status to other drugs, medicaments and biological substances

== ENCOUNTER → 2018-08-03 | Outpatient (CLI) | payer MEDICARE, BC, OTHER ==
--- NOTE | 2018-08-03 09:11 | REP ---
ULTRASOUND ABDOMINAL AORTA: Real-time sonographic evaluation of the abdominal aorta performed. There is an aneurysm of the mid to distal abdominal aorta which is not significantly changed in size compared to prior CT 05/11/2018. There has been placement of a stent within the aneurysm. There is patent internal flow seen. Maximum AP diameter of proximal abdominal aorta is 3.0 cm and at the level of the renal artery is 2.3 cm. Maximum AP diameter of the aneurysm is 4.8 cm and transverse 4.7 cm. The aneurysm extends to the aortic bifurcation. The common iliac arteries are mildly ectatic, right measuring 1.2 x 1.8 cm and left 1.3 x 1.7 cm. IMPRESSION: Distal abdominal aortic aneurysm not significantly changed in diameter compared to prior CT of 05/11/2018. A stent has been placed within the aneurysm and there is patent internal flow. Electronically Signed by Дмитрий Lantigua MD 08/07/2018 09:53 A
== END ==
LOC: M RAD 06:12
PROVIDERS: ATTEND Surgery Vascular Surgery
DX: I71.4 Abdominal aortic aneurysm, without rupture (principal)

== ENCOUNTER → 2018-09-11 | Outpatient (CLI) | payer MEDICARE, BC, OTHER ==
--- NOTE | 2018-09-11 14:09 | REP ---
Clinical: Pain. Technique: AP, lateral, bilateral oblique views of the right ankle. Findings: Subtle spurring along the inferior margin of the medial malleolus and overlying soft tissue swelling consistent with degenerative changes. No acute fracture dislocation. Impression: Mild medial swelling and degenerative changes at the medial malleolus. Electronically Signed by Darío Rojo MD 09/11/2018 02:00 P
== END ==
LOC: M WUC 13:39
PROVIDERS: ATTEND Internal Medicine
DX: M79.671 Pain in right foot (principal)

== ENCOUNTER → 2018-11-19 | Outpatient (CLI) | payer MEDICARE, BC, OTHER ==
[2018-11-19 12:39] LABS: HEMATOCRIT 46.4 % (42.0-52.0); HEMOGLOBIN 16.6 g/dl (13.5-17.5); MEAN CORPUSCULAR HGB CONC 35.8 g/dl (32.0-36.5); MEAN CORPUSCULAR VOLUME 97.9 fl (80.0-96.0); PLATELET COUNT, AUTOMATED 213 10^3/uL (150-450); RED BLOOD COUNT 4.74 10^6/uL (4.30-6.10); WHITE BLOOD COUNT 5.1 10^3/uL (4.0-10.0)
[2018-11-19 12:59] LABS: PROTHROMBIN TIME 12.9 SECONDS (11.8-14.0)
[2018-11-19 13:10] LABS: ALBUMIN 3.6 GM/DL (3.2-5.2); ALT/SGPT 81 U/L (12-78); BILIRUBIN,TOTAL 0.8 MG/DL (0.2-1.0); BLOOD UREA NITROGEN 12 MG/DL (7-18); CALCIUM LEVEL 9.1 MG/DL (8.8-10.2); CARBON DIOXIDE LEVEL 32 MEQ/L (21-32); CHLORIDE LEVEL 99 MEQ/L (98-107); CREATININE FOR GFR 1.14 MG/DL (0.70-1.30); FERRITIN 158 NG/ML (26-388); GLOMERULAR FILTRATION RATE > 60.0 (>49); GLUCOSE, FASTING 164 MG/DL (70-100); IRON (FE) 212 UG/DL (65-175); PERCENT SATURATION 51.8 % (19.7-50.0); POTASSIUM SERUM 3.3 MEQ/L (3.5-5.1); SODIUM LEVEL 138 MEQ/L (136-145); TOTAL IRON BINDING CAPACITY 409 UG/DL (250-450); TOTAL PROTEIN 7.5 GM/DL (6.4-8.2)
== END ==
LOC: M LAB 11:13
PROVIDERS: ATTEND Internal Medicine Gastroenterology
DX: K74.0 Hepatic fibrosis (principal); R94.5 Abnormal results of liver function studies; E83.119 Hemochromatosis, unspecified

== ENCOUNTER → 2019-02-14 | Outpatient (CLI) | payer MEDICARE, BC, OTHER ==
[~2019-02-14] MED LIST changes: -OMEP40CA2 PO; +OMEP40CA97 PO
--- NOTE | 2019-02-14 08:35 | REP ---
Clinical: History of endovascular repair for abdominal aortic aneurysm. Comparison: 08/03/2018. Technique: Real time bah scale ultrasound examination using curved array transducer. Findings: Proximal aorta 3.0 x 3.1 cm. Mid aorta (renal artery level) --- Mid aorta 2.3 x 3.3 cm. Distal aorta 6.1 x 4.6 cm. Right common iliac artery 2.2 x 2.0 cm maximal diameter. Left common iliac artery 3.0 x 3.1 cm maximal diameter. The patient is noted to be status post aortoiliac endovascular stent placement with satisfactory flow noted through the stent. The aorta measures 6.5 x 4.6 cm maximal AP and transverse diameter which in retrospect and with re-measurements of prior examination remains relatively stable and no obvious evidence for leak is appreciated by ultrasound. Impression: 1. Stent graft appears patent and no obvious endovascular leak is appreciated by ultrasound 2. Bilateral common iliac arteries are dilated as noted above. Electronically Signed by Darío Rojo MD 02/14/2019 08:27 A
== END ==
LOC: M RAD 07:27
PROVIDERS: ATTEND Physician Assistant
DX: I71.4 Abdominal aortic aneurysm, without rupture (principal)

== ENCOUNTER → 2019-02-21 | Outpatient (CLI) | payer MEDICARE, BC, OTHER ==
[2019-02-21 12:09] LABS: BLOOD UREA NITROGEN 10 MG/DL (7-18); CALCIUM LEVEL 9.2 MG/DL (8.8-10.2); CARBON DIOXIDE LEVEL 30 MEQ/L (21-32); CHLORIDE LEVEL 95 MEQ/L (98-107); CREATININE FOR GFR 1.09 MG/DL (0.70-1.30); GLOMERULAR FILTRATION RATE > 60.0 (>49); GLUCOSE, FASTING 173 MG/DL (70-100); POTASSIUM SERUM 3.1 MEQ/L (3.5-5.1); SODIUM LEVEL 137 MEQ/L (136-145)
== END ==
LOC: M LAB 10:32
PROVIDERS: ATTEND Physician Assistant
DX: Z01.818 Encounter for other preprocedural examination (principal)

== ENCOUNTER → 2019-02-27 | Outpatient (CLI) | payer MEDICARE, BC, OTHER ==
[~2019-02-27] MED LIST changes: +ISOVUE-370 76% 100ML VIAL (Q9967) As Ordered ONE
--- NOTE | 2019-02-27 12:11 | REP ---
CT ANGIOGRAM ABDOMEN AND PELVIS: CT angiogram abdomen and pelvis performed following the intravenous administration of 100 mL of Isovue 370. Sagittal, coronal, and 3-D MIP reconstruction images are performed. Comparison is made with prior CT 05/11/2018. There is a moderate hiatal hernia. No infiltrate is seen in the visualized lung bases. The liver, spleen, adrenals, pancreas, and kidneys appear unremarkable. There is no hydronephrosis. Multiple gallstones are seen in the gallbladder, without evidence of gallbladder wall thickening or edema. There is no definite biliary dilatation. There is no adenopathy, free air or free fluid. No bowel wall thickening is seen. Scattered diverticula are seen of the sigmoid and left colon. There is no pelvic mass. Urinary bladder is mildly distended and grossly unremarkable. There appear to be small inguinal hernias containing fat. Fusiform aneurysm of distal abdominal aorta is again seen. Maximum dimensions are 4.1 cm AP x 4.6 cm transverse, previously 4.5 cm AP x 4.2 cm transverse. Since the prior study there has been placement of an aortobiiliac stent. No endoleak is seen. Proximal right common iliac artery measures 2.2 cm in diameter, previously 1.7 cm. Proximal left common iliac artery measures 3.0 cm in diameter, previously 2.9 cm. There is no dissection. There is no stenosis of the celiac, superior mesenteric or renal arteries. A very thin patent inferior mesenteric artery is opacified with contrast. There are degenerative changes of the spine. IMPRESSION: Interval placement of aortobiiliac stent as discussed above. Dimensions of the distal abdominal aortic aneurysm and the common iliac arteries are given above. No evidence of dissection or endoleak. Note is made of a moderate sized hiatal hernia. Multiple gallstones are seen in the gallbladder. Scattered colonic diverticula are present without acute diverticulitis, free air or free fluid. Electronically Signed by Дмитрий Lantigua MD 02/27/2019 07:57 P
== END ==
LOC: M RAD 10:28
PROVIDERS: ATTEND Physician Assistant
DX: I71.4 Abdominal aortic aneurysm, without rupture (principal); K44.9 Diaphragmatic hernia without obstruction or gangrene; K57.30 Diverticulosis of large intestine without perforation or abscess without bleeding; K80.20 Calculus of gallbladder without cholecystitis without obstruction
CPT/HCPCS: 74174; Q9967

== ENCOUNTER → 2020-01-27 | Outpatient (CLI) | payer MEDICARE, BC, OTHER ==
[~2020-01-27] MED LIST changes: -BUPR300T34 PO; +BUPR300T92 PO; -ISOVUE-370 76% 100ML VIAL (Q9967) As Ordered ONE
[2020-01-27 08:39] LABS: HEMATOCRIT 45.8 % (42.0-52.0); HEMOGLOBIN 15.9 g/dl (13.5-17.5); MEAN CORPUSCULAR HEMOGLOBIN 33.2 pg (27.0-33.0); MEAN CORPUSCULAR HGB CONC 34.7 g/dl (32.0-36.5); MEAN CORPUSCULAR VOLUME 95.6 fl (80.0-96.0); PLATELET COUNT, AUTOMATED 215 10^3/uL (150-450); RED BLOOD COUNT 4.79 10^6/uL (4.30-6.10); WHITE BLOOD COUNT 5.6 10^3/uL (4.0-10.0)
[2020-01-27 08:48] LABS: INR 0.99; PROTHROMBIN TIME 13.3 SECONDS (12.5-14.3)
[2020-01-27 08:49] LABS: PARTIAL THROMBOPLASTIN TIME 42.6 SECONDS (24.2-38.5)
[2020-01-27 09:10] LABS: ALBUMIN 3.8 GM/DL (3.2-5.2); BILIRUBIN,DIRECT 0.3 MG/DL (0.0-0.2); BILIRUBIN,TOTAL 0.8 MG/DL (0.2-1.0); TOTAL PROTEIN 7.5 GM/DL (6.4-8.2)
== END ==
LOC: M LAB 07:52
PROVIDERS: ATTEND Internal Medicine
DX: R94.5 Abnormal results of liver function studies (principal); E83.119 Hemochromatosis, unspecified; K25.9 Gastric ulcer, unspecified as acute or chronic, without hemorrhage or perforation

== ENCOUNTER → 2020-03-09 | Outpatient (CLI) | payer MEDICARE, BC, OTHER ==
[2020-03-09 13:35] LABS: BLOOD UREA NITROGEN 14 MG/DL (7-18); CREATININE FOR GFR 1.11 MG/DL (0.70-1.30); GLOMERULAR FILTRATION RATE > 60.0 (>49)
== END ==
LOC: M LAB 12:10
PROVIDERS: ATTEND Physician Assistant
DX: I71.4 Abdominal aortic aneurysm, without rupture (principal)

== ENCOUNTER → 2020-03-19 | Outpatient (CLI) | payer MEDICARE, BC, OTHER ==
[~2020-03-19] MED LIST changes: +ISOVUE-370 76% 100ML VIAL As Ordered ONE
--- NOTE | 2020-03-19 10:54 | REP ---
INDICATION: AAA COMPARISON: 02/27/2019 TECHNIQUE: Axial contrast-enhanced images from the lung bases to the pubic symphysis using aortic angiographic technique with multiplanar reformations, MIP reconstructions, and volume rendered 3D CT aortogram. 100 cc Isovue 370 intravenous contrast material administered without complication. This CT examination was performed using the following dose reduction techniques: Automated exposure control, adjustment of mA and/or kv according to the patient's size, and use of iterative reconstruction technique. FINDINGS: Patient is again noted to be status post aortobi-iliac stent graft placement with stable appearance to the excluded infrarenal abdominal aortic aneurysm again measuring approximately 4.5 x 3.7 cm maximal transverse and AP diameter. The excluded portion of the aneurysm demonstrates no evidence for leak. Left common iliac aneurysm measuring 2.9 cm maximal diameter is also unchanged. The aorta, celiac axis, superior mesenteric artery, bilateral renal arteries and iliac arteries demonstrate normal enhancement, patent lumen and without areas of stenosis or occlusion. Liver, spleen, pancreas, bilateral adrenal glands and kidneys are normal. Cholelithiasis noted. The enteric system is without obstruction or acute inflammatory process. Normal terminal ileum and appendix identified in the right lower quadrant. Sigmoid diverticulosis noted without acute diverticulitis. Stable moderate hiatal hernia at the gastroesophageal junction noted. Pelvis demonstrates normal bladder and mild stable prostatomegaly. Small fat containing inguinal hernias noted. No ascites. No free air. No adenopathy. Musculoskeletal structures demonstrate stable degenerative changes. Lung bases are clear. IMPRESSION: 1. Stable satisfactory appearance to the aorta with stable appearance to the excluded infrarenal abdominal aortic and left iliac aneurysms. Major branch vessels of the aorta are patent and normal. 2. Cholelithiasis. 3. Diverticulosis. 4. Hiatal hernia. 5. Prostatomegaly. <Electronically signed by Darío Rojo > 03/19/20 [id number]
== END ==
LOC: M RAD 10:06
PROVIDERS: ATTEND Physician Assistant
DX: I71.4 Abdominal aortic aneurysm, without rupture (principal); K44.9 Diaphragmatic hernia without obstruction or gangrene; K57.32 Diverticulitis of large intestine without perforation or abscess without bleeding; K80.80 Other cholelithiasis without obstruction; N40.1 Benign prostatic hyperplasia with lower urinary tract symptoms; Z95.828 Presence of other vascular implants and grafts
CPT/HCPCS: 74174; Q9967

== ENCOUNTER → 2020-05-11 | Outpatient (REF) ==
[~2020-05-11] MED LIST changes: -ISOVUE-370 76% 100ML VIAL As Ordered ONE
[2020-05-11 19:57] LABS: INFLUENZA A AMPLIFICATION NEGATIVE (NEGATIVE); INFLUENZA B AMPLIFICATION NEGATIVE (NEGATIVE)
== END ==
LOC: M LAB 12:32